=== PATIENT | male | born 1995 | race American Indian/Alaskan Native ===

== ENCOUNTER 2017-05-27 12:45 | Emergency (ER) | payer MEDICAID, OTHER ==
[2017-05-27 12:54] VITALS: BMI 20.5
[2017-05-27 12:56] VITALS: TEMP 98.2; O2SAT 100
[2017-05-27] MEDS ORDERED: Tmp-Smz 800 mg-160 mg DS Tab PO STA (13:17)
--- NOTE | 2017-05-27 13:25 | ED PDOC ---
Arrival/HPI - General Chief Complaint: Abnormal Skin Integrity Time Seen by Provider: 05/27/17 12:48 Historian: Patient - History of Present Illness Narrative History of Present Illness (Text): 05/27/17 13:22 21yr old male presents today with a cyst to the right medial thigh that has worsened over the past week. pt states that he has been having a lump to the medial thigh x months and over the past week he noticed a black hole that he started squeezing. pt states about 2 days ago the lump opened up and pus came out. pt still c/o pain. denies fever/chills. denies numbness, weakness, tingling in the extremity. no other complaints. Time/Duration: > month Symptom Onset: Gradual Quality: Aching Severity Level: 3 Past Medical History - Provider Review Nursing Documentation Reviewed: Yes - Travel History Have you recently traveled outside [place] w/in the past 3 mons?: No - Infectious Disease Hx of Infectious Diseases: None - Psychiatric Hx Psychophysiologic Disorder: No Hx Substance Use: Yes - Anesthesia Hx Anesthesia: No Family/Social History - Physician Review Nursing Documentation Reviewed: Yes Family/Social History: Unknown Family HX Smoking Status: Light Smoker < 10 Cigarettes Daily Hx Alcohol Use: Yes Frequency of alcohol use: Socially Hx Substance Use: Yes Substance used: marijuana Allergies/Home Meds Allergies/Adverse Reactions: Allergies No Known Allergies Allergy (Verified 05/27/17 12:54) Review of Systems - Review of Systems Constitutional: absent: Fatigue, Fevers Respiratory: absent: SOB, Cough Cardiovascular: absent: Chest Pain, Palpitations Gastrointestinal: absent: Abdominal Pain, Nausea, Vomiting Musculoskeletal: Arthralgias Skin: Abscess Neurological: absent: Headache, Dizziness Psychiatric: absent: Anxiety, Depression Physical Exam Vital Signs Reviewed: Yes Vital Signs Temp Pulse Resp BP Pulse Ox 05/27/17 12:55 98.2 F 66 18 158/81 H 100 Temperature: Afebrile Blood Pressure: Hypertensive Pulse: Regular Respiratory Rate: Normal Appearance: Positive for: Well-Appearing, Non-Toxic, Comfortable Pain Distress: None Mental Status: Positive for: Alert and Oriented X 3 - Systems Exam Head: Present: Atraumatic Mouth: Present: Moist Mucous Membranes Neck: Present: Normal Range of Motion Respiratory/Chest: Present: Clear to Auscultation Cardiovascular: Present: Regular Rate and Rhythm Lower Extremity: Present: Normal ROM, Tenderness (left medial thigh; there is a quarter sized area of erythema and induration with central opening. no bleeding , no discharge. minimal tenderness. ), Swelling, Erythema, Capillary Refill < 2 s. No: Deformity, Temperature Abnormalties Neurological: Present: GCS=15, Speech Normal Skin: Present: Warm, Dry, Normal Color Psychiatric: Present: Alert, Oriented x 3 Medical Decision Making ED Course and Treatment: 05/27/17 13:28 Patient is nontoxic well-appearing in no distress. Vital signs are stable. Motrin, keflex po Bactrim DS p.o. pt with open abscess/ infected cyst. will start patient on bactrim and keflex; advised f/u with surgeon and pmd. Patient was advised to use warm compresses warm soaks. return immediately if symptoms worsen persist or if new symptoms develop. Patient verbalizes understanding of discharge instructions and need for immediate followup. all aspects of this case were discussed the attending of record. Impression: Abscess, thigh Motrin one tablet every 6 hours as needed for pain keflex; 1 capsule 4 times daily x 7 days Bactrim DS: One tablet twice daily x7 days Warm compresses and warm soaks frequently Follow up with the primary care physician within the next 2 days. Follow up with the surgeon within the next 2 days. Return immediately if symptoms worsen persist or if new symptoms develop: High fevers, increasing pain, increasing redness, swelling or if any other concerning symptoms develop. - Medication Orders Current Medication Orders: Discontinued Medications Cephalexin Monohydrate (Keflex) 500 mg PO STAT STA PRN Reason: Protocol Stop: 05/27/17 13:18 Trimethoprim/Sulfamethoxazole (Bactrim Ds Tab) 1 tab PO STAT STA PRN Reason: Protocol Stop: 05/27/17 13:18 Disposition/Present on Arrival - Present on Arrival Any Indicators Present on Arrival: No History of DVT/PE: No History of Uncontrolled Diabetes: No Urinary Catheter: No History of Decub. Ulcer: No History Surgical Site Infection Following: None - Disposition Have Diagnosis and Disposition been Completed?: Yes Diagnosis: Abscess of thigh Disposition: HOME/ ROUTINE Disposition Time: 13:33 Patient Plan: Discharge Condition: GOOD Discharge Instructions (ExitCare): Abscess (ED) Additional Instructions: Motrin one tablet every 6 hours as needed for pain keflex; 1 capsule 4 times daily x 7 days Bactrim DS: One tablet twice daily x7 days Warm compresses and warm soaks frequently Follow up with the primary care physician within the next 2 days. Follow up with the surgeon within the next 2 days. Return immediately if symptoms worsen persist or if new symptoms develop: High fevers, increasing pain, increasing redness, swelling or if any other concerning symptoms develop. Prescriptions: Cephalexin [Keflex] 500 mg PO QID #28 capsule Ibuprofen [Motrin] 600 mg PO Q6H PRN #20 tab PRN Reason: pain/fever reduction Sulfamethoxazole/Trimethoprim [Bactrim DS 800 mg-160 mg] 1 tab PO BID #14 tab Referrals: Chavez Castillo MD [Staff Provider] - Follow up with primary Ewa Huber MD [Staff Provider] - Follow up with primary Forms: [facility] (Kiswahili), WORK NOTE
[2017-05-27 14:12] VITALS: BP 139/78; PULSE 62; RESP 17
== END 2017-05-27 14:11 | disposition home or self-care (01) ==
LOC: ED 12:45
DX: L02.416 Cutaneous abscess of left lower limb (principal)